=== PATIENT | female | born 1970 | race Caucasian/White ===

== ENCOUNTER 2023-09-16 10:45 | Day surgery (SDC) | payer OTHER ==
[~2023-09-16] VITALS: Ht 170.2 cm; Wt 83.9 kg
[~2023-09-16 10:45] MED LIST: LIDOCAINE 2%, 20 ML MDV ONE; iopamidoL 50 ML VIAL IV ONE; methylPREDNISolone ACETATE 40 MG/ML ONE
[2023-09-16] MEDS ORDERED: DIPHENHYDRAMINE INJ 50 MG/ML VIAL ONE (12:09)
[2023-09-16] MEDS: fentaNYL CITRATE/PF 100 MCG/2 ML AMP ONE (12:16)
[2023-09-16] MEDS: MIDAZOLAM HCL 5 MG/5 ML VIAL ONE (12:17)
[2023-09-16 12:48] VITALS: O2SAT 98
[2023-09-16 14:17] VITALS: BP_SYST 111; PULSE 61; RESP 17
== END 2023-09-16 13:18 | disposition home or self-care (01) ==
LOC: SDS 10:45 → SMU 10:47 → SDS 13:18
PROVIDERS: ATTEND Internal Medicine
DX: M47.816 Spondylosis without myelopathy or radiculopathy, lumbar region (principal); M79.10 Myalgia, unspecified site; I10 Essential (primary) hypertension; E78.5 Hyperlipidemia, unspecified; F41.9 Anxiety disorder, unspecified; Z79.899 Other long term (current) drug therapy
CPT/HCPCS: 64493; J1030; J2250; J3010; Q9967; 76000; J1200; J2001